=== PATIENT | female | born 1975 | race Caucasian/White ===

== ENCOUNTER 2016-09-29 12:06 | Inpatient (IN) ==
--- NOTE | 2016-09-29 12:18 | Emergency Department Note ---
Disposition Clinical Impression: Suicidal ideation, Acute anxiety, Depression, Marijuana abuse Disposition: Admitted As Inpatient Referrals: NO,PCP [Non-Partnered Physician] - Forms: ED Satisfaction Letter General Adult HPI - General Chief complaint: ED Psychiatric Symptoms Stated complaint: " Med Clearance" Time Seen by Provider: 09/29/16 12:18 - History of Present Illness HPI Narrative: 41-year-old female history of anxiety depression reports emergency department, she has had suicidal thoughts over the last 2 weeks. There is no history of direct self-injurious behavior or intentional drug overdose. She denies physical complaints apart from a mild headache. The patient has no personal history of intracranial aneurysm mass or tumor or brain surgery. She has had negative brain imaging in the past. There is no history of chest pain shortness breath abdominal pain vomiting or diarrhea. She denies possible pergnancy. She has had tubal ligation. There is no history of back pain urinary symptoms fever convulsion or confusion no troubles walking talking hearing seeing or speaking or any other complaint or concern. The patient states that she is more anxious than usual, there are significant concerns regarding potential self-injurious behavior. Per report our psychiatric service is aware of her condition and will be here to evaluate the patient, there has been a request for a lithium level. - Related Data Home Medications Medication Instructions Recorded Confirmed Celexa 40 mg PO DAILY 04/09/15 09/29/16 Flexeril 5 mg PO TID 04/09/15 09/29/16 Xanax 1 mg PO TID 04/09/15 09/29/16 DULoxetine [Cymbalta] 30 mg PO DAILY 09/29/16 09/29/16 Propranolol HCl [Innopran Xl] 80 mg PO DAILY 09/29/16 09/29/16 Rizatriptan Benzoate [Maxalt] 10 mg PO DAILY 09/29/16 09/29/16 Previous Rx's Medication Instructions Recorded Amoxicillin 875 mg PO BID #20 tablet 04/09/15 Benzonatate [Tessalon] 200 mg PO TID PRN #30 capsule 04/09/15 Allergies Allergy/AdvReac Type Severity Reaction Status Date / Time diflunisal [From Dolobid] Allergy Rash Verified 09/29/16 12:11 All systems ED: reviewed and negative except as stated. Past Medical History - Past Medical History Psychiatric history: Reports: anxiety, bipolar, depression - Social History Smoking Status: Current every day smoker Smokeless Tobacco Status: No Alcohol use: Reports: none Physical Exam - General Limitations: no limitations General appearance: alert, in no apparent distress - Head Head exam: atraumatic, normocephalic, normal inspection - Eye Eye exam: Present: normal appearance, PERRL, EOMI. Absent: scleral icterus - ENT ENT exam: normal exam, normal oropharynx, mucous membranes moist, TM's normal bilaterally, normal external ear exam - Neck Neck exam: Present: normal inspection, full ROM, trachea midline. Absent: tenderness - Chest Chest inspection: Present: symmetric chest wall rise. Absent: tenderness - Respiratory Respiratory exam: Present: normal lung sounds bilaterally. Absent: respiratory distress, wheezes, stridor, accessory muscle use, prolonged expiratory phase - Cardiovascular Cardiovascular exam: Present: regular rate, normal rhythm, normal heart sounds - Abdominal Exam Abdominal exam: Present: soft, Non-Tender. Absent: tenderness, distention, guarding, rebound, rigidity, normal bowel sounds - Extremities Exam Extremities exam: Present: normal inspection, full ROM, normal capillary refill. Absent: tenderness, pedal edema, joint swelling, calf tenderness - Expanded Lower Extremity Exam Lower leg exam: Absent: Hom[place]' sign Foot/toe exam: Present: full ROM Neurovascular/Tendon exam: Present: normal capillary refill. Absent: motor deficit, sensory deficit, tendon deficit, extremity cold to touch, pallor - Back Exam Back exam: Present: normal inspection, full ROM. Absent: tenderness, CVA tenderness (R), CVA tenderness (L), vertebral tenderness - Neurological Exam Neurological exam: Present: alert, oriented X3, CN II-XII intact. Absent: motor sensory deficit - Psychiatric Psychiatric exam: Present: normal affect, normal mood - Skin Skin exam: Present: warm, dry, intact, normal color. Absent: rash, cyanosis, diaphoresis, erythema, pallor, mottled Course Vital Signs Temperature 98.8 F 09/29/16 12:19 Pulse Rate 74 09/29/16 12:19 Respiratory Rate 16 09/29/16 12:19 Blood Pressure 118/81 09/29/16 12:19 O2 Sat by Pulse Oximetry 97 09/29/16 12:19 Temperature 98.8 F 09/29/16 12:19 Pulse Rate 74 09/29/16 12:19 Respiratory Rate 16 09/29/16 12:19 Blood Pressure 118/81 09/29/16 12:19 O2 Sat by Pulse Oximetry 97 09/29/16 12:19 Oxygen Delivery Oxygen Delivery Room Air Medical Decision Making - MDM Narrative Medical decision making narrative: The patient has no acute physical complaints. She appears to medically stable. Based on the patient's significant psychiatric complaints including anxiety, depression, and suicidality with plan, we have consulted the psychiatric counselors for evaluation. The psychiatric counselors evaluated the patient and feel she needs to be admitted to the hospital for psychiatric evaluation. - Lab Data Lab results reviewed: Yes I reviewed the patient's lab results. Result diagrams: 09/29/16 12:41 09/29/16 12:41 Lab Results 09/29/16 09/29/16 09/29/16 Range/Units 12:41 12:41 12:41 WBC 9.7 (4.3-11.1) K/mcL RBC 4.52 (3.82-4.97) M/mcL Hgb 14.9 (11.5-15.4) g/dL Hct 41.8 (35.3-44.9) % MCV 92.5 (83.0-100.0) fL MCH 33.0 (28.0-33.3) pg MCHC 35.6 H (31.6-35.5) g/dL RDW 12.7 (11.5-14.5) % Plt Count 267 (140-400) K/mcL MPV 8.9 L (9.4-12.4) fL Immature Gran % 0.3 (0-4) % Seg Neutrophils % 63.9 % Lymphocytes % 23.8 % Monocytes % 9.1 % Eosinophils % 2.2 % Basophils % 0.7 % Neutrophils # 6.2 (1.6-8.9) K/mcL Lymphocytes # 2.3 (0.6-4.6) K/mcL Monocytes # 0.9 (0.0-1.3) K/mcL Eosinophils # 0.2 (0.0-0.6) K/mcL Basophils # 0.1 (0.0-0.2) K/mcL Sodium 137 (136-145) mEq/L Potassium 4.0 (3.5-4.5) mEq/L Chloride 108 (98-109) mEq/L Carbon Dioxide 22 (19-29) mEq/L BUN 5 L (7-20) mg/dL Creatinine 0.73 (0.57-1.11) mg/dL Est GFR ( Amer) > 60 (> 60) Est GFR (Non-Af Amer) > 60 (> 60) BUN/Creatinine Ratio 7 (6-26) Glucose 106 H (70-99) mg/dL Calculated Osmolality 282 (280-300) Calcium 9.1 (8.6-10.8) mg/dL Serum , Qual (Negative) Urine Color (Yellow) Urine Clarity (Clear) Urine pH (5.0-8.0) pH Units Ur Specific [place] (1.010-1.025) Urine Protein (Neg-Trace) mg/dL Urine Glucose (UA) (Normal) mg/dL Urine Ketones (Negative) mg/dL Urine Blood (Negative) Urine Nitrite (Negative) Urine Bilirubin (Negative) Urine Urobilinogen (Normal) mg/dL Ur Leukocyte Esterase (Negative) Urine Microscopic RBC (0-3) per hpf Urine Microscopic WBC (0-3) per hpf Ur Squamous Epith Cells (None-Few) per lpf Urine Bacteria (None-Few) per hpf Hyaline Casts (None-Few) per lpf Salicylates < 5.0 L (15-30) mg/dL Urine Opiates Screen (Vmklnt=499) ng/mL Acetaminophen < 1.0 L (10-30) mcg/mL Ur Barbiturates Screen (Pmmcix=725) ng/mL Ur Phencyclidine Scrn (Cutoff=25) ng/mL Ur Amphetamines Screen (Crxlns=1915) ng/mL U Benzodiazepines Scrn (Boptlw=706) ng/mL [place] < 0.1 L (0.6-1.2) mEq/L Urine Cocaine Screen (Cutoff= 300) ng/mL U Marijuana (THC) Screen (Cutoff = 50) ng/mL Ethyl Alcohol < 10 (0-10) mg/dL 09/29/16 09/29/16 09/29/16 Range/Units 12:55 12:55 14:39 WBC (4.3-11.1) K/mcL RBC (3.82-4.97) M/mcL Hgb (11.5-15.4) g/dL Hct (35.3-44.9) % MCV (83.0-100.0) fL MCH (28.0-33.3) pg MCHC (31.6-35.5) g/dL RDW (11.5-14.5) % Plt Count (140-400) K/mcL MPV (9.4-12.4) fL Immature Gran % (0-4) % Seg Neutrophils % % Lymphocytes % % Monocytes % % Eosinophils % % Basophils % % Neutrophils # (1.6-8.9) K/mcL Lymphocytes # (0.6-4.6) K/mcL Monocytes # (0.0-1.3) K/mcL Eosinophils # (0.0-0.6) K/mcL Basophils # (0.0-0.2) K/mcL Sodium (136-145) mEq/L Potassium (3.5-4.5) mEq/L Chloride (98-109) mEq/L Carbon Dioxide (19-29) mEq/L BUN (7-20) mg/dL Creatinine (0.57-1.11) mg/dL Est GFR ( Amer) (> 60) Est GFR (Non-Af Amer) (> 60) BUN/Creatinine Ratio (6-26) Glucose (70-99) mg/dL Calculated Osmolality (280-300) Calcium (8.6-10.8) mg/dL Serum , Qual Negative (Negative) Urine Color Yellow (Yellow) Urine Clarity Clear (Clear) Urine pH 7.0 (5.0-8.0) pH Units Ur Specific [place] 1.007 L (1.010-1.025) Urine Protein Negative (Neg-Trace) mg/dL Urine Glucose (UA) Normal (Normal) mg/dL Urine Ketones Negative (Negative) mg/dL Urine Blood Moderate H (Negative) Urine Nitrite Negative (Negative) Urine Bilirubin Negative (Negative) Urine Urobilinogen Normal (Normal) mg/dL Ur Leukocyte Esterase Small H (Negative) Urine Microscopic RBC 5-15 H (0-3) per hpf Urine Microscopic WBC 0-3 (0-3) per hpf Ur Squamous Epith Cells Many H (None-Few) per lpf Urine Bacteria None Seen (None-Few) per hpf Hyaline Casts None Seen (None-Few) per lpf Salicylates (15-30) mg/dL Urine Opiates Screen Negative (Rryuoi=558) ng/mL Acetaminophen (10-30) mcg/mL Ur Barbiturates Screen Negative (Yywcdc=241) ng/mL Ur Phencyclidine Scrn Negative (Cutoff=25) ng/mL Ur Amphetamines Screen Negative (Zdgeto=1722) ng/mL U Benzodiazepines Scrn Positive H (Hmavgy=504) ng/mL [place] (0.6-1.2) mEq/L Urine Cocaine Screen Negative (Cutoff= 300) ng/mL U Marijuana (THC) Screen Positive H (Cutoff = 50) ng/mL Ethyl Alcohol (0-10) mg/dL
[2016-09-29 12:48] LABS: Basophils # 0.1 K/mcL (0.0-0.2); Basophils % 0.7 %; Eosinophils # 0.2 K/mcL (0.0-0.6); Eosinophils % 2.2 %; Hematocrit 41.8 % (35.3-44.9); Hemoglobin 14.9 g/dL (11.5-15.4); Immature Granulocytes % 0.3 % (0-4); Lymphocytes # 2.3 K/mcL (0.6-4.6); Lymphocytes % 23.8 %; Mean Corpuscular HGB Conc 35.6 g/dL (31.6-35.5); Mean Corpuscular Volume 92.5 fL (83.0-100.0); Mean Platelet Volume 8.9 fL (9.4-12.4); Monocytes # 0.9 K/mcL (0.0-1.3); Monocytes % 9.1 %; Neutrophils # 6.2 K/mcL (1.6-8.9); Platelet Count 267 K/mcL (140-400); Red Blood Count 4.52 M/mcL (3.82-4.97); Red Cell Distribution Width 12.7 % (11.5-14.5); Segmented Neutrophils % 63.9 %
[2016-09-29 13:00] LABS: BUN/Creatinine Ratio 7 (6-26); Calcium 9.1 mg/dL (8.6-10.8); Carbon Dioxide 22 mEq/L (19-29); Chloride 108 mEq/L (98-109); Glucose 106 mg/dL (70-99); Osmolality,Calculated 282 (280-300); Sodium 137 mEq/L (136-145); eGFR For African Americans > 60 (> 60); eGFR For Non-African Americans > 60 (> 60)
[2016-09-29 13:01] LABS: Acetaminophen < 1.0 mcg/mL (10-30); Blood Urea Nitrogen 5 mg/dL (7-20); Ethanol < 10 mg/dL (0-10); Salicylate < 5.0 mg/dL (15-30)
[2016-09-29 13:13] LABS: Bilirubin,Urine Negative (Negative); Blood,Urine Moderate (Negative); Clarity,Urine Clear (Clear); Color,Urine Yellow (Yellow); Glucose,Urine (UA) Normal (Normal); Ketones,Urine Negative (Negative); Leukocyte Esterase,Urine Small (Negative); Nitrite,Urine Negative (Negative); Protein,Urine Negative (Neg-Trace); Specific Gravity,Urine 1.007 (1.010-1.025); Urobilinogen,Urine Normal (Normal)
[2016-09-29 13:17] LABS: Bacteria,Urine None Seen per hpf (None-Few); Hyaline Casts,Urine None Seen per lpf (None-Few); Squamous Epithelial Cell,Urine Many per lpf (None-Few); WBC,Urine 0-3 per hpf (0-3)
[2016-09-29 13:19] LABS: Amphetamine Screen,Urine Negative ng/mL (Cutoff=1000); Barbiturate Screen,Urine Negative ng/mL (Cutoff=200); Benzodiazepines Screen,Urine Positive ng/mL (Cutoff=200); Cannabinoid Screen,Urine Positive ng/mL (Cutoff = 50); Cocaine Screen,Urine Negative ng/mL (Cutoff= 300); Opiate Screen,Urine Negative ng/mL (Cutoff=300); Phencyclidine Screen,Urine Negative ng/mL (Cutoff=25)
[2016-09-29] MEDS ORDERED: Haloperidol Lactate 5 MG/ML VIAL IM PRN (16:12)
[2016-09-29] MEDS ORDERED: hydrOXYzine pamoate 25 MG CAPSULE PO PRN (16:12)
[2016-09-29] MEDS ORDERED: *HR* LORazepam 2 MG/ML VIAL IM PRN (16:12)
[2016-09-29] MEDS ORDERED: *HR* LORazepam 1 MG TABLET PO PRN (16:12)
[2016-09-29] MEDS ORDERED: Mag Hydrox/Al Hydrox/Simeth 30 ML UDC PO PRN (16:12)
[2016-09-29] MEDS ORDERED: MOM Conc 10 ML UD.LIQ PO PRN (16:12)
[2016-09-29] MEDS ORDERED: (Rizatriptan Benzoate [Maxalt] 10 MG) PO PRN (16:14)
[2016-09-29] MEDS: Nicotine 21 MG PATCH.TD24 TD SCH (17:35)
[2016-09-29] MEDS: ALPRAZolam 1 MG TABLET PO SCH (20:21)
[2016-09-29] MEDS ORDERED: traZODone 50 MG TABLET PO PRN (21:00)
[2016-09-29] MEDS: Propranolol LA (24 HR) 80 MG CAP.SA.24H PO SCH (21:08)
[2016-09-30] MEDS: Acetaminophen 325 MG TABLET PO PRN ×2 (04:56→20:50)
[2016-09-30] MEDS: Nicotine 21 MG PATCH.TD24 TD SCH (08:27)
[2016-09-30] MEDS: Cholecalciferol (D-3) 1,000 UNIT TABLET PO SCH (08:28)
[2016-09-30] MEDS: ALPRAZolam 1 MG TABLET PO SCH ×3 (08:28→20:49)
[2016-09-30] MEDS ORDERED: Propranolol LA (24 HR) 80 MG CAP.SA.24H PO SCH (09:00)
--- NOTE | 2016-09-30 11:01 | Psychiatry History & Physical ---
Date of Encounter: 09/30/16 Time of Encounter: 10:30 History of Present Illness Patient Stated Chief Complaint: Suicidal ideation Medicare Admission Attestation: For traditional Medicare patients the provided hospital inpatient services are reasonable and necessary and in the case of services not specified as inpatient -only under 42 CFR 419.22 (n), that they are appropriately provided as inpatient services in accordance 42 CFR 412.3. For Critical Access Hospital the patient may reasonably be expected to be discharged or transferred to a hospital within 96 hours after admission to the Critical Access Hospital. Admitted From: Emergency Dept History of Present Illness: Ms. Monzon is a 41 year old female admitted from the emergency department for suicidal ideation. Patient was seen in the counseling center for initial appointment, she was referred from the office to be admitted to the hospital for suicidal ideation and depression. Patient has a long history of psychiatric treatment for bipolar disorder and anxiety disorder she was under the care of Dr. you and has not been seen for follow-up since March 2016. Patient also was making changes to her medication without consulting a psychiatrist she was taking lithium and then she stopped taking it and felt increasingly depressed and irritable and having mood swings and suicidal ideation. Patient is stressed out by work and family issues, her UDS was positive for THC and benzos. Past Med Surg Social Fam HX - Past Medical History Medical history: migraine - Past Psychiatric History Psychiatric history: Reports: anxiety, bipolar, previous psychiatric hospitalization - Social History Smoking Status: Current every day smoker Smokeless Tobacco Status: No Alcohol use: none Drug use: marijuana Medications & Allergies ALPRAZolam [Xanax 1 MG Tablet] 1 mg PO TID 04/09/15 [History] Citalopram Hydrobromide [Celexa] 40 mg PO DAILY 04/09/15 [History] Cyclobenzaprine HCl 5 mg PO TID 04/09/15 [History] DULoxetine [Cymbalta] 30 mg PO DAILY 09/29/16 [History] Ergocalciferol (VITAMIN D2) [Vitamin D2] 4,000 unit PO DAILY 09/29/16 [History] Omeprazole [PriLOSEC] 20 mg PO DAILY 09/29/16 [History] Propranolol HCl [Innopran Xl] 80 mg PO DAILY 09/29/16 [History] Rizatriptan Benzoate [Maxalt] 10 mg PO DAILY PRN 09/29/16 [History] Allergies diflunisal [From Dolobid] Allergy (Verified 09/29/16 12:11) Rash Review of Systems Psychiatric: Reports: depression, anxiety, suicidal ideation, mood swings Mental Status Exam Patient orientation: Yes Person, Yes Time, Yes Place Level of alertness: Alert Patient appearance: Appropriate, Well Groomed, Obese Behavior: calm, cooperative, anxious, suspicious Psychomotor activity: Increased Eye contact: Maintains Eye Contact Mood description: Anxious, Labile Affect description: congruent with mood, labile Speech pattern: Normal rate, Normal rhythm, Normal tone, Excessive Speech volume: Normal Thought process: Linear, Goal Oriented Thought content: Yes Suicidal ideation, No Homicidal ideation, No Overt delusions Perceptual disturbances: No Auditory hallucinations, No Visual hallucinations Attention span: Capable of Focused Attention Memory description: Grossly Intact Patient reliability: Reliable Historian Intelligence estimate: Average Judgment: Limited Insight: Partial Results - Vital Signs Vital signs: Temp Pulse Resp BP Pulse Ox 97.3 F L 76 18 136/96 97 09/30/16 08:30 09/30/16 08:30 09/30/16 08:30 09/30/16 08:30 09/29/16 12:19 - Labs Labs: Laboratory Last Values WBC 9.7 K/mcL (4.3-11.1) 09/29/16 12:41 RBC 4.52 M/mcL (3.82-4.97) 09/29/16 12:41 Hgb 14.9 g/dL (11.5-15.4) 09/29/16 12:41 Hct 41.8 % (35.3-44.9) 09/29/16 12:41 MCV 92.5 fL (83.0-100.0) 09/29/16 12:41 MCH 33.0 pg (28.0-33.3) 09/29/16 12:41 MCHC 35.6 g/dL (31.6-35.5) H 09/29/16 12:41 RDW 12.7 % (11.5-14.5) 09/29/16 12:41 Plt Count 267 K/mcL (140-400) 09/29/16 12:41 MPV 8.9 fL (9.4-12.4) L 09/29/16 12:41 Immature Gran % 0.3 % (0-4) 09/29/16 12:41 Seg Neutrophils % 63.9 % 09/29/16 12:41 Lymphocytes % 23.8 % 09/29/16 12:41 Monocytes % 9.1 % 09/29/16 12:41 Eosinophils % 2.2 % 09/29/16 12:41 Basophils % 0.7 % 09/29/16 12:41 Neutrophils # 6.2 K/mcL (1.6-8.9) 09/29/16 12:41 Lymphocytes # 2.3 K/mcL (0.6-4.6) 09/29/16 12:41 Monocytes # 0.9 K/mcL (0.0-1.3) 09/29/16 12:41 Eosinophils # 0.2 K/mcL (0.0-0.6) 09/29/16 12:41 Basophils # 0.1 K/mcL (0.0-0.2) 09/29/16 12:41 Sodium 137 mEq/L (136-145) 09/29/16 12:41 Potassium 4.0 mEq/L (3.5-4.5) 09/29/16 12:41 Chloride 108 mEq/L (98-109) 09/29/16 12:41 Carbon Dioxide 22 mEq/L (19-29) 09/29/16 12:41 BUN 5 mg/dL (7-20) L 09/29/16 12:41 Creatinine 0.73 mg/dL (0.57-1.11) 09/29/16 12:41 Est GFR ( Amer) > 60 (> 60) 09/29/16 12:41 Est GFR (Non-Af Amer) > 60 (> 60) 09/29/16 12:41 BUN/Creatinine Ratio 7 (6-26) 09/29/16 12:41 Glucose 106 mg/dL (70-99) H 09/29/16 12:41 Calculated Osmolality 282 (280-300) 09/29/16 12:41 Calcium 9.1 mg/dL (8.6-10.8) 09/29/16 12:41 Serum , Qual Negative (Negative) 09/29/16 14:39 Urine Color Yellow (Yellow) 09/29/16 12:55 Urine Clarity Clear (Clear) 09/29/16 12:55 Urine pH 7.0 pH Units (5.0-8.0) 09/29/16 12:55 Ur Specific [place] 1.007 (1.010-1.025) L 09/29/16 12:55 Urine Protein Negative mg/dL (Neg-Trace) 09/29/16 12:55 Urine Glucose (UA) Normal mg/dL (Normal) 09/29/16 12:55 Urine Ketones Negative mg/dL (Negative) 09/29/16 12:55 Urine Blood Moderate (Negative) H 09/29/16 12:55 Urine Nitrite Negative (Negative) 09/29/16 12:55 Urine Bilirubin Negative (Negative) 09/29/16 12:55 Urine Urobilinogen Normal mg/dL (Normal) 09/29/16 12:55 Ur Leukocyte Esterase Small (Negative) H 09/29/16 12:55 Urine Microscopic RBC 5-15 per hpf (0-3) H 09/29/16 12:55 Urine Microscopic WBC 0-3 per hpf (0-3) 09/29/16 12:55 Ur Squamous Epith Cells Many per lpf (None-Few) H 09/29/16 12:55 Urine Bacteria None Seen per hpf (None-Few) 09/29/16 12:55 Hyaline Casts None Seen per lpf (None-Few) 09/29/16 12:55 Salicylates < 5.0 mg/dL (15-30) L 09/29/16 12:41 Urine Opiates Screen Negative ng/mL (Zawrkx=493) 09/29/16 12:55 Acetaminophen < 1.0 mcg/mL (10-30) L 09/29/16 12:41 Ur Barbiturates Screen Negative ng/mL (Wyupkr=293) 09/29/16 12:55 Ur Phencyclidine Scrn Negative ng/mL (Cutoff=25) 09/29/16 12:55 Ur Amphetamines Screen Negative ng/mL (Dxzuny=4565) 09/29/16 12:55 U Benzodiazepines Scrn Positive ng/mL (Aqpche=231) H 09/29/16 12:55 [place] < 0.1 mEq/L (0.6-1.2) L 09/29/16 12:41 Urine Cocaine Screen Negative ng/mL (Cutoff= 300) 09/29/16 12:55 U Marijuana (THC) Screen Positive ng/mL (Cutoff = 50) H 09/29/16 12:55 Ethyl Alcohol < 10 mg/dL (0-10) 09/29/16 12:41 Assessment and Plan (1) Bipolar disorder current episode depressed Current visit: Yes Status: Acute Plan: Admit inpatient for safety and stabilization, Close observation, Suicide Precautions per unit protocol, Encourage participation in unit milieu, Group Therapy, Monitor sleep, Monitor appetite Additional Plan: We will increase Cymbalta to 60 mg daily, was started Depakote 250 mg at bedtime Risks, benefits, side effects, alternatives discussed w/pt: Yes Patient agreeable to treatment: Yes Qualifiers: Current episode severity: severe Psychotic features: without psychotic features Qualified Code(s): F31.4 - Bipolar disorder, current episode depressed, severe, without psychotic features (2) Marijuana abuse Current visit: Yes Status: Acute Risks, benefits, side effects, alternatives discussed w/pt: Yes Patient agreeable to treatment: Yes
[2016-09-30] MEDS: Propranolol LA (24 HR) 80 MG CAP.SA.24H PO SCH (20:49)
[2016-09-30] MEDS ORDERED: Divalproex (24 HR) 250 MG TABLET PO SCH (21:00)
[2016-10-01 08:31] VITALS: BP 142/98
[2016-10-01] MEDS: Cholecalciferol (D-3) 1,000 UNIT TABLET PO SCH (09:05)
[2016-10-01] MEDS: ALPRAZolam 1 MG TABLET PO SCH ×2 (09:05→14:27)
[2016-10-01] MEDS: Nicotine 21 MG PATCH.TD24 TD SCH (09:05)
--- NOTE | 2016-10-01 13:32 | Discharge Summary ---
Date of Encounter: 10/01/16 Time of Encounter: 13:26 Diagnosis - Discharge Diagnosis (1) Bipolar disorder current episode depressed Status: Acute Qualifiers: Current episode severity: severe Psychotic features: without psychotic features Qualified Code(s): F31.4 - Bipolar disorder, current episode depressed, severe, without psychotic features (2) Marijuana abuse Status: Acute Medications - Discharge Medications Prescriptions: Divalproex (24 HR) [Depakote ER (24 HR)] 250 mg PO HS #30 tab.er.24h DULoxetine [Cymbalta] 60 mg PO HS #60 capsule. Citalopram Hydrobromide [Celexa] 40 mg PO DAILY 04/09/15 [History] Cyclobenzaprine HCl 5 mg PO TID 04/09/15 [History] Ergocalciferol (VITAMIN D2) [Vitamin D2] 4,000 unit PO DAILY 09/29/16 [History] Omeprazole [PriLOSEC] 20 mg PO DAILY 09/29/16 [History] Propranolol HCl [Innopran Xl] 80 mg PO DAILY 09/29/16 [History] Rizatriptan Benzoate [Maxalt] 10 mg PO DAILY PRN 09/29/16 [History] ALPRAZolam [Xanax 1 MG Tablet] 1 mg PO TID PRN #0 10/01/16 [Rx] DULoxetine [Cymbalta] 60 mg PO HS #60 capsule. 10/01/16 [Rx] Divalproex (24 HR) [Depakote ER (24 HR)] 250 mg PO HS #30 tab.er.24h 10/01/16 [ Rx] Allergies diflunisal [From Dolobid] Allergy (Verified 09/29/16 12:11) Rash Provider Date of admission: 09/29/16 15:47 Primary care physician: PCP NO Consults: 09/29/16 17:55 Consult to Pastoral Services [CONS] Routine Comment: Discharging clinician: Amadeo Wilcox Assessment and Plan - Patient/Caregiver Discharge Instructions Activity: resume usual activities as tolerated Diet: regular diet - Follow up Plan Follow up with: [facility] [Outside] - 10/28/16 10:00 am (The above appointment is with Ana Chamberlain for counseling. You will also see Yessi Moore CNP, on 11/05/2016 at 10:00am for ongoing psychiatric assessment and medication management services.) Functional capacity at discharge: independent ambulation Overall status at discharge: Stable Disposition: Home, Self-Care Hospital Course Hospital course: Ms. Monzon is a 41 year old female admitted to suicidal ideation and mood swings. For details of the admission please see H&P On the unit patient medication were adjusted, Cymbalta was increased to 60 mg daily, Depakote 250 mg at bedtime was added as a mood stabilizer and continued on citalopram. Her Xanax was changed to when necessary. Advised to use as less as possible. She tolerated medication changes, reported improved sleep, stable mood and less anxiety. Patient denied any suicidal ideation or hopelessness. Her discharge plans were completed by social work. On discharge patient was medically stable, nonsuicidal and future oriented. - Time Spent with Patient Total time spent providing and/or coordinating discharge services: Greater than 30 minutes Quality - Multiple Antipsychotics Patient discharged on 2 or more antipsychotic medications: No Procedures - Procedures Procedures: Medication Management, Crisis Stabilization, Supportive Therapy, Group Therapy, Psychoeducational Therapy Mental Status Exam - Mental Status Exam Patient orientation: Yes Person, Yes Time, Yes Place Level of alertness: Alert Patient appearance: Appropriate, Well Groomed Behavior: calm, cooperative, talkative Psychomotor activity: Normal Eye contact: Maintains Eye Contact Mood description: Euthymic/stable, Elevated Affect description: congruent with mood, full range Speech pattern: Normal rate, Normal rhythm, Normal tone, Excessive Speech Volume: Normal Thought process: Linear, Goal Oriented Thought Content: No Suicidal ideation, No Homicidal ideation, No Overt delusions Perceptual Disturbances: No Auditory hallucinations, No Visual hallucinations Judgment: Limited Insight: Partial
== END 2016-10-01 14:49 | disposition home or self-care (01) | DRG 885 ==
LOC: EMEROO 12:06 → 1ANU 15:47
PROVIDERS: ADMIT Psychiatry & Neurology Psychiatry; ATTEND Psychiatry & Neurology Psychiatry

== ENCOUNTER 2021-08-26 10:48 | Inpatient (IN) ==
[2021-08-26 12:04] LABS: Basophils # 0.1 K/mcL (0.0-0.2); Basophils % 1.2 %; Eosinophils # 0.2 K/mcL (0.0-0.6); Eosinophils % 2.6 %; Hematocrit 42.8 % (35.3-44.9); Hemoglobin 14.3 g/dL (11.5-15.4); Immature Granulocytes % 0.7 % (0-4); Lymphocytes # 2.3 K/mcL (0.6-4.6); Lymphocytes % 38.4 %; Mean Corpuscular HGB Conc 33.4 g/dL (31.6-35.5); Mean Corpuscular Hemoglobin 31.8 pg (28.0-33.3); Mean Corpuscular Volume 95.3 fL (83.0-100.0); Mean Platelet Volume 8.6 fL (9.4-12.4); Monocytes % 15.8 %; Neutrophils # 2.5 K/mcL (1.6-8.9); Platelet Count 247 K/mcL (140-400); Red Blood Count 4.49 M/mcL (3.82-4.97); Red Cell Distribution Width 13.5 % (11.5-14.5); Segmented Neutrophils % 41.3 %; White Blood Count 6.1 K/mcL (4.3-11.1)
[2021-08-26 12:08] LABS: Bacteria,Urine Few per hpf (None-Few); Bilirubin,Urine Negative (Negative); Blood,Urine Trace (Negative); Clarity,Urine Clear (Clear); Color,Urine Light-Yellow (Yellow); Glucose,Urine (UA) Normal (Normal); Ketones,Urine Negative (Negative); Leukocyte Esterase,Urine Negative (Negative); Nitrite,Urine Negative (Negative); PH,Urine 6.5 pH Units (5.0-8.0); Protein,Urine Negative (Neg-Trace); RBC,Urine 0-3 per hpf (0-3); Specific Gravity,Urine 1.007 (1.010-1.025); Squamous Epithelial Cell,Urine Few per hpf (None-Few); Urobilinogen,Urine Normal (Normal); WBC,Urine 0-3 per hpf (0-3)
[2021-08-26 12:19] LABS: Amphetamine Screen,Urine Negative ng/mL (Cutoff=1000); Barbiturate Screen,Urine Negative ng/mL (Cutoff=200); Benzodiazepines Screen,Urine Positive ng/mL (Cutoff=200); Cannabinoid Screen,Urine Positive ng/mL (Cutoff = 50); Cocaine Screen,Urine Negative ng/mL (Cutoff= 300); Opiate Screen,Urine Negative ng/mL (Cutoff=300); Phencyclidine Screen,Urine Negative ng/mL (Cutoff=25)
[2021-08-26 12:21] LABS: Acetaminophen < 10 mcg/mL (10-20); BUN/Creatinine Ratio 9 (6-26); Blood Urea Nitrogen 7 mg/dL (6-20); Calcium 8.8 mg/dL (8.6-10.3); Carbon Dioxide 28 mEq/L (23-29); Chloride 101 mEq/L (98-107); Chol/HDL Ratio 4.6 (0-4.9); Cholesterol 189 mg/dL (< 200); Ethanol < 10 mg/dL (Less than 10); Glucose 161 mg/dL (70-105); HDL Cholesterol 41 mg/dL (40-59); LDL Cholesterol,Calculated 78 mg/dL (< 100); Osmolality,Calculated 287 (280-300); Potassium 3.5 mEq/L (3.5-5.1); Salicylate < 2.5 mg/dL (15.0-30.0); Sodium 138 mEq/L (136-145); Triglycerides 351 mg/dL (< 150); eGFR For African Americans > 60 (> 60); eGFR For Non-African Americans > 60 (> 60)
[2021-08-26 14:50] LABS: Influenza A PCR Negative (Negative); Influenza B PCR Negative (Negative); Resp. Syncytial Virus PCR Negative (Negative)
[2021-08-26 15:59] LABS: SARS-CoV-2 by PCR (In House) Negative (Negative)
[2021-08-26] MEDS ORDERED: haloperidoL 5 MG TABLET PO PRN (16:53)
[2021-08-26] MEDS ORDERED: *HR* LORazepam 1 MG TABLET PO PRN (16:53)
[2021-08-26] MEDS ORDERED: Ibuprofen 400 MG TABLET PO PRN (16:53)
[2021-08-26] MEDS ORDERED: traZODone 50 MG TABLET PO PRN (16:53)
[2021-08-26] MEDS ORDERED: *HR* LORazepam 2 MG/ML VIAL IM PRN (16:53)
[2021-08-26] MEDS ORDERED: Haloperidol Lactate 5 MG/ML VIAL IM PRN (16:53)
[2021-08-26] MEDS ORDERED: Divalproex (24 HR) 500 MG TABLET PO SCH (21:00)
[2021-08-26] MEDS: Ziprasidone 80 MG CAPSULE PO SCH (21:53)
[2021-08-26] MEDS: hydrOXYzine pamoate 25 MG CAPSULE PO PRN (21:56)
[2021-08-26] MEDS: ALPRAZolam 1 MG TABLET PO PRN (21:56)
[2021-08-27] MEDS ORDERED: Divalproex (24 HR) 500 MG TABLET PO SCH (09:00)
[2021-08-27] MEDS: Ziprasidone 80 MG CAPSULE PO SCH ×2 (09:24→20:17)
[2021-08-27] MEDS: Nicotine 14 MG PATCH.TD24 TD SCH (09:25)
[2021-08-27] MEDS: Cholecalciferol (D-3) 1,000 UNIT (25MCG) TABLET PO SCH (09:25)
[2021-08-27] MEDS: ALPRAZolam 1 MG TABLET PO PRN ×2 (09:27→20:21)
[2021-08-27] MEDS: hydrOXYzine pamoate 25 MG CAPSULE PO PRN ×2 (09:28→20:21)
[2021-08-27] MEDS ORDERED: Divalproex (24 HR) 500 MG TABLET PO ONE (21:00)
[2021-08-28] MEDS: Nicotine 14 MG PATCH.TD24 TD SCH (08:42)
[2021-08-28] MEDS: Cholecalciferol (D-3) 1,000 UNIT (25MCG) TABLET PO SCH (08:43)
[2021-08-28] MEDS: Ziprasidone 80 MG CAPSULE PO SCH ×2 (08:43→21:10)
[2021-08-28] MEDS: ALPRAZolam 1 MG TABLET PO PRN ×2 (08:45→21:15)
[2021-08-28] MEDS: hydrOXYzine pamoate 25 MG CAPSULE PO PRN ×2 (08:46→21:15)
[2021-08-28] MEDS ORDERED: Divalproex (24 HR) 500 MG TABLET PO SCH (21:00)
[2021-08-29] MEDS: Cholecalciferol (D-3) 1,000 UNIT (25MCG) TABLET PO SCH (09:10)
[2021-08-29] MEDS: Ziprasidone 80 MG CAPSULE PO SCH (09:10)
[2021-08-29] MEDS: Nicotine 14 MG PATCH.TD24 TD SCH (09:11)
[2021-08-29] MEDS: ALPRAZolam 1 MG TABLET PO PRN (09:14)
[2021-08-29] MEDS: hydrOXYzine pamoate 25 MG CAPSULE PO PRN (09:14)
[2021-08-29 09:58] VITALS: BP 135/87; PULSE 98; TEMP 97.8; O2SAT 98
== END 2021-08-29 14:00 | disposition home or self-care (01) | DRG 885 ==
LOC: EMEROOARM 10:48 → 1ANU 16:19
PROVIDERS: ADMIT Psychiatry & Neurology Neurology; ATTEND Psychiatry & Neurology Neurology